=== PATIENT | female | born 1985 | race Two or more races ===

== ENCOUNTER 2025-04-08 13:40 | Emergency (ER) | payer OTHER, SELFPAY ==
[2025-04-08 13:57] VITALS: BP 125/87; PULSE 87; RESP 16; TEMP 36.6; O2SAT 100
--- NOTE | 2025-04-08 14:30 | ED.DENTAL ---
HPI - Dental/Oral General Chief complaint: Dental/Oral Stated complaint: tooth pain Source: patient Mode of arrival: ambulatory Limitations: no limitations History of Present Illness HPI Narrative: Pt is a 39 y/o female presenting with c/o atraumatic L. upper dental pain. Pain began 5 days ago. 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 Has not contacted her dentist. No consitutional sx. No additional complaints. Related Data Allergies Allergy/AdvReac Type Severity Reaction Status Date / Time No Known Allergies Allergy Verified 04/08/25 14:00 Review of Systems Review of Systems: CONSTITUTIONAL: Denies body aches, fever, chills, or sweats. EYES: Denies visual changes, redness, or discharge. ENT: Reports left dental pain Denies rhinorrhea, congestion, sore throat, or otalgia. CARDIOVASCULAR: Denies chest pain, palpitations, or edema. RESPIRATORY: Denies cough or dyspnea. GASTROINTESTINAL: Denies abdominal pain, nausea, vomiting, or diarrhea. GENITOURINARY: Denies dysuria or hematuria. SKIN: Denies rash, itching, or wounds. MUSCULOSKELETAL: Denies back pain, joint pain, or myalgia. NEUROLOGIC: Denies headache, numbness, tingling, or weakness. PSYCH: Denies depression or anxiety. All systems reviewed & are unremarkable except as noted in HPI and below Exam Narrative: GENERAL: Well-appearing, well-nourished, and in no acute distress. HEAD: Normocephalic, atraumatic. EYES: EOMI. No redness or drainage. Conjunctivae normal. ENT: Mucous membranes pink and moist. Nares clear. No rhinorrhea. TMs normal bilaterally. Throat normal. Uvula midline. no trismus. No evidence of Nura angina. Tooth no 14 is TTP. No visible abscess NECK: Normal AROM. Supple. No lymphadenopathy. CHEST: No respiratory distress. HEART: Regular rate SKIN: Warm, dry, no rash. Capillary refill normal. Normal skin turgor. NEURO: No focal deficits. Alert and oriented x3. Gait steady. PSYCH: Normal affect. No signs of depression or anxiety. Course Course Level of Care: Express Care Visit Vital Signs Vital signs: Vital Signs Temperature 98 F 04/08/25 13:57 Pulse Rate 87 04/08/25 13:57 Respiratory Rate 16 04/08/25 13:57 Blood Pressure 125/87 04/08/25 13:57 Pulse Oximetry 100 04/08/25 13:57 Temperature 98 F 04/08/25 13:57 Pulse Rate 87 04/08/25 13:57 Respiratory Rate 16 04/08/25 13:57 Blood Pressure 125/87 04/08/25 13:57 Pulse Oximetry 100 04/08/25 13:57 MDM - Dental/Oral MDM Narrative Medical decision making narrative: patient received list dental clinics. Discharge Plan Discharge Clinical Impression: Toothache Patient Disposition: Home Condition: Stable Instructions: Antibiotic Form, Toothache (ED) Additional Instructions: Go straight to ER should your symptoms become worse or should any new symptoms develop Patient Language: Kinyarwanda Prescriptions: New clindamycin HCl [Cleocin HCl] 150 mg capsule 450 mg PO Q8H 7 Days Qty: 63 0RF ibuprofen 600 mg tablet 600 mg PO QID PRN (Reason: pain) Qty: 30 0RF Follow-up/Referrals: PHYSICIAN,SOAP TENDER [Primary Care Provider] - 04/08/25 (follow-up with your dentist DARELL.) Time of Disposition: 14:33
== END 2025-04-08 14:40 | disposition home or self-care (01) ==
PROVIDERS: Emergency Provider Registered Nurse
DX: K08.89 Other specified disorders of teeth and supporting structures (principal)
CPT/HCPCS: 99203; G0463

== ENCOUNTER 2025-04-18 14:31 | Emergency (ER) | payer OTHER, SELFPAY ==
[2025-04-18 14:45] VITALS: BP 110/74; PULSE 90; RESP 16; TEMP 36.9; O2SAT 100
--- NOTE | 2025-04-18 15:29 | ED.ALLEREA ---
HPI - Allergic Reaction General Chief complaint: Skin/Abscess/Foreign Body Stated complaint: ALLERGIC REACTION Source: patient Mode of arrival: ambulatory Limitations: no limitations History of Present Illness HPI narrative: Patient presents for evaluation of a pruritic generalized rash this started 2 days ago. She was evaluated here earlier this month for dental pain. She was given a prescription for clindamycin. Her pain did not get better. She saw a dentist was given a prescription for azithromycin. She started the medication on Sunday. Her rash started the following day. Rash worsened yesterday. She tried Benadryl by mouth and topically without much improvement. She denies any difficulty breathing or swelling. No new foods or topical products that could have caused her symptoms. Related Data Home Medications ?Medication ?Instructions ?Recorded ?Confirmed ?Last Taken ?Type azithromycin 250 mg tablet mg 04/18/25 Unknown History Allergies Allergy/AdvReac Type Severity Reaction Status Date / Time azithromycin Allergy Severe Rash Verified 04/18/25 14:42 Review of Systems Review of Systems: CONSTITUTIONAL: Denies fever, chills, or sweats. EYES: Denies visual changes, redness, or discharge. ENT: Denies rhinorrhea, congestion, sore throat, or otalgia. CARDIOVASCULAR: Denies chest pain, palpitations, or edema. RESPIRATORY: Denies cough or dyspnea. GASTROINTESTINAL: Denies abdominal pain, nausea, vomiting, or diarrhea. GENITOURINARY: Denies dysuria or hematuria. SKIN: Reports generalized pruritic rash MUSCULOSKELETAL: Denies back pain, joint pain, or myalgia. NEUROLOGIC: Denies headache, numbness, dizziness, or weakness. PSYCHIATRIC: Denies anxiety or depression. [facility] Past Medical History Medical History No pertinent past medical history Surgical History Surgical History History of Family History Family History Mother Family history non-contributory Social History Social History Smoking status: Never smoker Substance use: never Living arrangements: with family Gender identity (if verbalized by the patient): Female Sexual Orientation (if Verbalized by the Patient): Straight or Heterosexual Spiritual care concerns: No Exam Narrative: GENERAL: Well-appearing, well-nourished, and in no acute distress. HEAD: Normocephalic, atraumatic. EYES: PERRLA and EOMI. ENT: Nares clear, no rhinorrhea or epistaxis. Mucous membranes moist. Oropharynx without tonsillar hypertrophy exudate or other lesions. Bilateral TMs pearly alberto nonbulging NECK: Supple. No adenopathy or masses. No carotid bruits or JVD CHEST: Clear to auscultation. No respiratory distress. No wheezes rales or rhonchi HEART: Regular rate and rhythm. No murmur heard. Normal peripheral pulses. ABDOMEN: Soft, nontender, nondistended, normal active bowel sounds. EXTREMITIES: Normal range of motion. No edema. SKIN: there are erythematous macules and papules to the trunk and extremities x4, too numerous to count NEURO: No focal deficits. Alert and oriented x3. PSYCH: Normal mood and affect. Course Course Emergency Course: this is a 39-year-old female who presented for evaluation of her pruritic rash. This appears to be allergic reaction to azithromycin. She has no airway compromise. Her dental pain has resolved since starting azithromycin. I do not appreciate any infection on exam today. She was given Solu-Medrol injection and will discharge with prednisone. She may take Benadryl as needed. She should follow-up with her dentist primary care provider go to the ER for any difficulty breathing or swelling. Patient in agreement with plan of care. Level of Care: Express Care Visit Vital Signs Vital signs: Vital Signs Temperature 36.9 C 04/18/25 14:45 Pulse Rate 90 04/18/25 14:45 Respiratory Rate 16 04/18/25 14:45 Blood Pressure 110/74 04/18/25 14:45 Pulse Oximetry 100 04/18/25 14:45 Oxygen Delivery Room Air 04/18/25 14:45 Temperature 36.9 C 04/18/25 14:45 Pulse Rate 90 04/18/25 14:45 Respiratory Rate 16 04/18/25 14:45 Blood Pressure 110/74 04/18/25 14:45 Pulse Oximetry 100 04/18/25 14:45 Oxygen Delivery Room Air 04/18/25 14:45 Discharge Plan Discharge Clinical Impression: Allergic reaction Patient Disposition: Home Condition: Stable Instructions: Antibiotic Form, Allergies (ED), General Allergic Reaction (ED) Patient Language: [place] Leonean Prescriptions: New prednisone 50 mg tablet 50 mg PO DAILY Qty: 5 0RF No Action clindamycin HCl [Cleocin HCl] 150 mg capsule 450 mg PO Q8H 7 Days Qty: 63 0RF ibuprofen 600 mg tablet 600 mg PO QID PRN (Reason: pain) Qty: 30 0RF azithromycin 250 mg tablet Follow-up/Referrals: Jl Coronado MD [Physician, Family Practice] Time of Disposition: 15:17
== END 2025-04-18 15:40 | disposition home or self-care (01) ==
PROVIDERS: Emergency Provider Nurse Practitioner
DX: L27.0 Generalized skin eruption due to drugs and medicaments taken internally (principal); T36.3X5A Adverse effect of macrolides, initial encounter
CPT/HCPCS: 96372; 99213; G0463; J2919